=== PATIENT | female | born 2000 | race Caucasian/White ===

== ENCOUNTER 2023-09-22 08:07 | Inpatient (IN) | payer OTHER, SELFPAY ==
[2023-09-22] VITALS (144 sets, daily range): BP systolic 120–189; BP diastolic 67–106; PULSE 54–129; RESP 14–22; TEMP 36.4–36.9; O2SAT 83–100; BMI 31.0
[2023-09-22 08:04] LABS: ROM Internal Control Test YES-OK TO RESULT pt. (Internal QC)
[2023-09-22 08:06] LABS: ROM Patient Test POSITIVE (Negative)
[2023-09-22] MEDS: 0.9% Saline Lock 10 ML Syringe IV (08:30)
[2023-09-22] MEDS: NIFEdipine 10 MG Capsule PO (08:45)
[2023-09-22 08:46] LABS: Absolute Lymphocyte Count 2.06 X10^3/uL (0.83-4.51); Absolute Neutrophil Count 9.3 X10^3/uL (2.0-7.7); Basophil# 0.03 X10^3/uL; Basophil% 0.2 % (0-1); Eosinophil# 0.13 X10^3/uL; Hematocrit 42.1 % (37-47); Hemoglobin 14.3 g/dL (12.0-15.0); Lymphocyte # 2.06 X10^3/ul (0.83-4.51); Lymphocyte % 16.6 % (19-41); Mean Corpuscular Hgb 30.9 pg (27.0-32.0); Mean Corpuscular Volume 90.9 fL (81-99); Mean Platelet Vol. 12.3 fl (6.2-12.0); Monocyte% 6.5 % (0-10); NRBC Flagged by Analyzer 0 % (0-5); Neutrophil # 9.34 X10^3/uL (2.7-7.7); Neutrophil % 75.5 % (47-70); Platelet Count 177 K/mm3 (150-450); RBC Distribution Width CV 12.6 % (11.6-14.6); Red Blood Count 4.63 M/mm3 (4.2-5.4); White Blood Count 12.4 K/mm3 (4.4-11.0)
[2023-09-22 09:01] LABS: AST(SGOT) 23 U/L (15-37); Alanine Aminotransfer ALT/SGPT 17 U/L (13-56); Creatinine, Serum 0.71 mg/dL (0.55-1.02); EST Glomerular Filtration Rate 108 mL/min (>60); Est Glom Filt Rate - Afr Amer 130 mL/min (>60); Uric Acid 6.5 mg/dL (2.6-6.0)
[2023-09-22] MEDS: NIFEdipine 10 MG Capsule 20 MG PO (09:26)
[2023-09-22 09:46] LABS: Syphilis Antibodies Non-reactive
[2023-09-22 09:49] LABS: Protein, Urine (Random) 42.5 mg/dL (<11.9); Protein:Creat Ratio 1060 mg/g CRE (0-200)
[2023-09-22] MEDS: Lactated Ringers 1,000 ML 50 ML IV (10:00)
[2023-09-22] MEDS: Magnesium Sulfate 4gm/100mL 4 GM/100 ML IV.SOLN. IV (10:29)
[2023-09-22] MEDS: NIFEdipine 60 MG Tablet PO (10:30)
[2023-09-22] MEDS: Magnesium Sulfate 4gm/100mL 2 GM/50 ML IV.SOLN. IV (10:49)
[2023-09-22] MEDS: Magnesium Sulfate 20 GM/500 ML BAG IV ×2 (11:06→21:11)
[2023-09-22] MEDS: Lidocaine 1% (20 ml mdv) 20 ML Vial INFILT (15:20)
[2023-09-22] MEDS: Oxytocin 15 Units/NS 250ml 15 UNITS/250 ML IV.SOLN 83 UNITS IV (15:40)
--- NOTE | 2023-09-22 15:40 | EX.PCM.OBRPT ---
Maternal Data Information Final KELECHI: 09/17/23 Gestational age: 40 5/7 Vaginal Delivery Maternal Presentation Maternal Presentation: Active Labor Operative Information Date of Procedure: 09/22/23 Pre-Operative Diagnosis: labor, preeclampsia w/ severe features Post-Operative Diagnosis: same Surgery / Procedure Performed: Spontaneous Vaginal Delivery Type of Anesthesia: Local with 1% Lidocaine (18cc) Special Medications: none Drain: - (none) Estimated Blood Loss: 500 Time of Delivery: 15:11 Findings Description of Procedure: A vigorous male was delivered [CHRISTINE] over an intact perineum. There was a left-sided second-degree vaginal laceration that was approximately 2 cm long.. The remainder the infant was delivered with maternal pushing and gentle traction only in less than 15 seconds. The Pitocin infusion was initiated for active management of the third stage. The cord was clamped and cut after cord pulsations ceased. The infant was attended to by the waiting nursing staff. The placenta was delivered spontaneously and intact. The cervix and vagina were intact. Local anesthetic was injected locally. The vaginal laceration was pared with 3-0 Vicryl suture in a running standard fashion hemostasis was noted. Sponge and needle counts were correct. A vaginal sweep was completed by me. Presentation: CHRISTINE Amniotic Membrane Rupture Type: Spontaneous Amniotic Fluid Description: Clear Placental Delivery Description: Spontaneous Placenta Disposition: [facility] Cord Vessel Description: 3 Vessels Cord Entanglement: None A Gender: Male (1 minute): 8 (5 minute): 9 Delayed Cord Clamping: Yes Post Vaginal Delivery Medications Given After Delivery: IV Pitocin Episiotomy Description: None Laceration: 2nd degree (vaginal)
--- NOTE | 2023-09-22 15:43 | PCM.HP.OB ---
HPI - General General Date of Admission: 09/22/23 Date of Service: 09/22/23 Chief Complaint: 40 5/7 HPI Narrative LEYDA RAMIREZ, is a 23 F who presents G2, P0 in active labor. Her blood pressures were also in the severe range. Her was uncomplicated to date. Maternal Data Information Final KELECHI: 09/17/23 Gestational age: 40 5/7 PFSH PFSH Medical History (Updated 09/22/23 @ 15:[address] Quin Ramirez MD) Superficial varicosities Home Medications [id number] 1 pkg PO DAILY 09/22/23 [History Last Taken Unknown] Allergy/AdvReac Type Severity Reaction Status Date / Time amoxicillin [From Augmentin] Allergy Swelling Verified 09/22/23 08:37 clavulanic acid Allergy Swelling Verified 09/22/23 08:37 [From Augmentin] Surgical History (Updated 09/22/23 @ 09:18 by Yashira Miramontes) History of surgery Social History Smoking Status: Never smoker History Elective abortions Hx Para 0 Spontaneous abortions Hx # Term Pregnancies Ectopic pregnancies Hx # Pregnancies Multiple births # of living children ROS Constitutional Constitutional: Denies fatigue, fever(s) or malaise Eyes Eyes: Denies change in vision ENT HEENT: Denies dizziness or headache(s) Cardiovascular Cardiovascular: Denies chest pain, dyspnea or lightheadedness Respiratory/Chest Respiratory/Chest: Denies cough or dyspnea Gastrointestinal Gastrointestinal: Denies change in bowel habits Genitourinary Genitourinary: Denies burning urination or genital lesions Integumentary Integumentary: Denies rash Neurologic Neurologic: Denies confusion, dizziness, headache(s), numbness or weakness Vital Signs Vital Signs Vital Signs: 09/22/23 08:01 09/22/23 08:01 09/22/23 08:01 Temperature Temperature Source Tympanic Pulse Rate 66 Respiratory Rate Respiratory Effort Respiratory Depth Respiratory Pattern Blood Pressure 189/101 H Blood Pressure Mean BP Systolic 189 BP Diastolic 101 Blood Pressure Source Blood Pressure Position Blood Pressure Location Pulse Ox Oxygen Delivery Method 09/22/23 08:01 09/22/23 08:01 09/22/23 08:03 Temperature 97.6 F L Temperature Source Pulse Rate Respiratory Rate Respiratory Effort Respiratory Depth Respiratory Pattern Blood Pressure 162/85 H Blood Pressure Mean BP Systolic 162 BP Diastolic 85 Blood Pressure Source Blood Pressure Position Blood Pressure Location Pulse Ox 100 Oxygen Delivery Method 09/22/23 08:03 09/22/23 08:06 09/22/23 08:06 Temperature Temperature Source Pulse Rate 54 L 64 Respiratory Rate Respiratory Effort Respiratory Depth Respiratory Pattern Blood Pressure Blood Pressure Mean BP Systolic BP Diastolic Blood Pressure Source Blood Pressure Position Blood Pressure Location Pulse Ox 99 Oxygen Delivery Method 09/22/23 08:11 09/22/23 08:11 09/22/23 08:16 Temperature Temperature Source Pulse Rate 74 69 Respiratory Rate Respiratory Effort Respiratory Depth Respiratory Pattern Blood Pressure Blood Pressure Mean BP Systolic BP Diastolic Blood Pressure Source Blood Pressure Position Blood Pressure Location Pulse Ox 99 Oxygen Delivery Method 09/22/23 08:16 09/22/23 08:19 09/22/23 08:19 Temperature Temperature Source Pulse Rate 59 L Respiratory Rate Respiratory Effort Respiratory Depth Respiratory Pattern Blood Pressure 168/89 H Blood Pressure Mean BP Systolic 168 BP Diastolic 89 Blood Pressure Source Blood Pressure Position Blood Pressure Location Pulse Ox 98 Oxygen Delivery Method 09/22/23 08:21 09/22/23 08:21 09/22/23 08:26 Temperature Temperature Source Pulse Rate 67 75 Respiratory Rate Respiratory Effort Respiratory Depth Respiratory Pattern Blood Pressure Blood Pressure Mean BP Systolic BP Diastolic Blood Pressure Source Blood Pressure Position Blood Pressure Location Pulse Ox 99 Oxygen Delivery Method 09/22/23 08:26 09/22/23 08:31 09/22/23 08:31 Temperature Temperature Source Pulse Rate 68 Respiratory Rate Respiratory Effort Respiratory Depth Respiratory Pattern Blood Pressure Blood Pressure Mean BP Systolic BP Diastolic Blood Pressure Source Blood Pressure Position Blood Pressure Location Pulse Ox 100 100 Oxygen Delivery Method 09/22/23 08:33 09/22/23 08:33 09/22/23 08:36 Temperature Temperature Source Pulse Rate 69 69 Respiratory Rate Respiratory Effort Respiratory Depth Respiratory Pattern Blood Pressure 174/99 H Blood Pressure Mean BP Systolic 174 BP Diastolic 99 Blood Pressure Source Blood Pressure Position Blood Pressure Location Pulse Ox Oxygen Delivery Method 09/22/23 08:36 09/22/23 08:41 09/22/23 08:41 Temperature Temperature Source Pulse Rate 69 Respiratory Rate Respiratory Effort Respiratory Depth Respiratory Pattern Blood Pressure Blood Pressure Mean BP Systolic BP Diastolic Blood Pressure Source Blood Pressure Position Blood Pressure Location Pulse Ox 99 97 Oxygen Delivery Method 09/22/23 09:09 09/22/23 09:09 09/22/23 09:47 Temperature Temperature Source Pulse Rate 71 Respiratory Rate Respiratory Effort Respiratory Depth Respiratory Pattern Blood Pressure 161/96 H 147/88 H Blood Pressure Mean BP Systolic 161 147 BP Diastolic 96 88 Blood Pressure Source Blood Pressure Position Blood Pressure Location Pulse Ox Oxygen Delivery Method 09/22/23 09:47 09/22/23 10:34 09/22/23 10:34 Temperature Temperature Source Pulse Rate 72 94 Respiratory Rate Respiratory Effort Respiratory Depth Respiratory Pattern Blood Pressure Blood Pressure Mean BP Systolic BP Diastolic Blood Pressure Source Blood Pressure Position Blood Pressure Location Pulse Ox 98 Oxygen Delivery Method 09/22/23 10:36 09/22/23 10:36 09/22/23 10:39 Temperature Temperature Source Pulse Rate 94 100 Respiratory Rate Respiratory Effort Respiratory Depth Respiratory Pattern Blood Pressure Blood Pressure Mean BP Systolic BP Diastolic Blood Pressure Source Blood Pressure Position Blood Pressure Location Pulse Ox 94 Oxygen Delivery Method 09/22/23 10:39 09/22/23 10:42 09/22/23 10:42 Temperature Temperature Source Pulse Rate 102 H Respiratory Rate Respiratory Effort Respiratory Depth Respiratory Pattern Blood Pressure 138/86 H Blood Pressure Mean BP Systolic 138 BP Diastolic 86 Blood Pressure Source Blood Pressure Position Blood Pressure Location Pulse Ox 99 Oxygen Delivery Method 09/22/23 10:44 09/22/23 10:44 09/22/23 10:49 Temperature Temperature Source Pulse Rate 100 95 Respiratory Rate Respiratory Effort Respiratory Depth Respiratory Pattern Blood Pressure Blood Pressure Mean BP Systolic BP Diastolic Blood Pressure Source Blood Pressure Position Blood Pressure Location Pulse Ox 99 Oxygen Delivery Method 09/22/23 10:49 09/22/23 10:51 09/22/23 10:51 Temperature Temperature Source Pulse Rate 101 H Respiratory Rate Respiratory Effort Respiratory Depth Respiratory Pattern Blood Pressure Blood Pressure Mean BP Systolic BP Diastolic Blood Pressure Source Blood Pressure Position Blood Pressure Location Pulse Ox 98 92 Oxygen Delivery Method 09/22/23 10:53 09/22/23 10:53 09/22/23 10:54 Temperature Temperature Source Pulse Rate 82 96 Respiratory Rate Respiratory Effort Respiratory Depth Respiratory Pattern Blood Pressure 144/67 H Blood Pressure Mean BP Systolic 144 BP Diastolic 67 Blood Pressure Source Blood Pressure Position Blood Pressure Location Pulse Ox Oxygen Delivery Method 09/22/23 10:54 09/22/23 10:59 09/22/23 10:59 Temperature Temperature Source Pulse Rate 92 Respiratory Rate Respiratory Effort Respiratory Depth Respiratory Pattern Blood Pressure Blood Pressure Mean BP Systolic BP Diastolic Blood Pressure Source Blood Pressure Position Blood Pressure Location Pulse Ox 99 99 Oxygen Delivery Method 09/22/23 11:02 09/22/23 11:02 09/22/23 11:03 Temperature Temperature Source Pulse Rate 81 88 Respiratory Rate Respiratory Effort Respiratory Depth Respiratory Pattern Blood Pressure 148/85 H Blood Pressure Mean BP Systolic 148 BP Diastolic 85 Blood Pressure Source Blood Pressure Position Blood Pressure Location Pulse Ox Oxygen Delivery Method 09/22/23 11:03 09/22/23 11:04 09/22/23 11:04 Temperature Temperature Source Pulse Rate 95 Respiratory Rate Respiratory Effort Respiratory Depth Respiratory Pattern Blood Pressure Blood Pressure Mean BP Systolic BP Diastolic Blood Pressure Source Blood Pressure Position Blood Pressure Location Pulse Ox 93 99 Oxygen Delivery Method 09/22/23 11:10 09/22/23 11:10 09/22/23 11:12 Temperature Temperature Source Pulse Rate 81 Respiratory Rate Respiratory Effort Respiratory Depth Respiratory Pattern Blood Pressure 166/88 H Blood Pressure Mean BP Systolic 166 BP Diastolic 88 Blood Pressure Source Blood Pressure Position Blood Pressure Location Pulse Ox 94 Oxygen Delivery Method 09/22/23 11:12 09/22/23 11:15 09/22/23 11:15 Temperature Temperature Source Pulse Rate 84 80 Respiratory Rate Respiratory Effort Respiratory Depth Respiratory Pattern Blood Pressure Blood Pressure Mean BP Systolic BP Diastolic Blood Pressure Source Blood Pressure Position Blood Pressure Location Pulse Ox 91 Oxygen Delivery Method 09/22/23 11:20 09/22/23 11:20 09/22/23 11:22 Temperature Temperature Source Pulse Rate 70 Respiratory Rate Respiratory Effort Respiratory Depth Respiratory Pattern Blood Pressure 143/85 H Blood Pressure Mean BP Systolic 143 BP Diastolic 85 Blood Pressure Source Blood Pressure Position Blood Pressure Location Pulse Ox 92 Oxygen Delivery Method 09/22/23 11:22 09/22/23 11:24 09/22/23 11:24 Temperature Temperature Source Pulse Rate 70 87 Respiratory Rate Respiratory Effort Respiratory Depth Respiratory Pattern Blood Pressure Blood Pressure Mean BP Systolic BP Diastolic Blood Pressure Source Blood Pressure Position Blood Pressure Location Pulse Ox 99 Oxygen Delivery Method 09/22/23 11:28 09/22/23 11:28 09/22/23 11:29 Temperature Temperature Source Pulse Rate 69 64 Respiratory Rate Respiratory Effort Respiratory Depth Respiratory Pattern Blood Pressure Blood Pressure Mean BP Systolic BP Diastolic Blood Pressure Source Blood Pressure Position Blood Pressure Location Pulse Ox 92 Oxygen Delivery Method 09/22/23 11:29 09/22/23 10:40 09/22/23 11:32 Temperature Temperature Source Temporal Pulse Rate Respiratory Rate Respiratory Effort Respiratory Depth Respiratory Pattern Blood Pressure 135/106 H Blood Pressure Mean BP Systolic 135 BP Diastolic 106 Blood Pressure Source Blood Pressure Position Blood Pressure Location Pulse Ox 94 Oxygen Delivery Method 09/22/23 11:32 09/22/23 11:34 09/22/23 11:34 Temperature Temperature Source Pulse Rate 86 71 Respiratory Rate Respiratory Effort Respiratory Depth Respiratory Pattern Blood Pressure Blood Pressure Mean BP Systolic BP Diastolic Blood Pressure Source Blood Pressure Position Blood Pressure Location Pulse Ox 90 Oxygen Delivery Method 09/22/23 11:39 09/22/23 11:39 09/22/23 11:45 Temperature Temperature Source Pulse Rate 85 66 Respiratory Rate Respiratory Effort Respiratory Depth Respiratory Pattern Blood Pressure Blood Pressure Mean BP Systolic BP Diastolic Blood Pressure Source Blood Pressure Position Blood Pressure Location Pulse Ox 98 Oxygen Delivery Method 09/22/23 11:45 09/22/23 11:49 09/22/23 11:49 Temperature Temperature Source Pulse Rate 80 Respiratory Rate Respiratory Effort Respiratory Depth Respiratory Pattern Blood Pressure Blood Pressure Mean BP Systolic BP Diastolic Blood Pressure Source Blood Pressure Position Blood Pressure Location Pulse Ox 93 99 Oxygen Delivery Method 09/22/23 11:55 09/22/23 11:55 09/22/23 11:56 Temperature Temperature Source Pulse Rate 89 93 Respiratory Rate Respiratory Effort Respiratory Depth Respiratory Pattern Blood Pressure Blood Pressure Mean BP Systolic BP Diastolic Blood Pressure Source Blood Pressure Position Blood Pressure Location Pulse Ox 100 Oxygen Delivery Method 09/22/23 11:56 09/22/23 12:00 09/22/23 12:00 Temperature Temperature Source Pulse Rate 87 Respiratory Rate Respiratory Effort Respiratory Depth Respiratory Pattern Blood Pressure Blood Pressure Mean BP Systolic BP Diastolic Blood Pressure Source Blood Pressure Position Blood Pressure Location Pulse Ox 83 95 Oxygen Delivery Method 09/22/23 12:05 09/22/23 12:05 09/22/23 12:08 Temperature Temperature Source Pulse Rate 91 Respiratory Rate Respiratory Effort Respiratory Depth Respiratory Pattern Blood Pressure 138/88 H Blood Pressure Mean BP Systolic 138 BP Diastolic 88 Blood Pressure Source Blood Pressure Position Blood Pressure Location Pulse Ox 100 Oxygen Delivery Method 09/22/23 12:08 09/22/23 12:08 09/22/23 12:10 Temperature Temperature Source Pulse Rate 74 95 Respiratory Rate Respiratory Effort Respiratory Depth Respiratory Pattern Blood Pressure Blood Pressure Mean BP Systolic BP Diastolic Blood Pressure Source Blood Pressure Position Blood Pressure Location Pulse Ox 89 Oxygen Delivery Method 09/22/23 12:10 09/22/23 12:22 09/22/23 12:22 Temperature Temperature Source Pulse Rate 79 Respiratory Rate Respiratory Effort Respiratory Depth Respiratory Pattern Blood Pressure Blood Pressure Mean BP Systolic BP Diastolic Blood Pressure Source Blood Pressure Position Blood Pressure Location Pulse Ox 99 98 Oxygen Delivery Method 09/22/23 12:24 09/22/23 12:24 09/22/23 12:27 Temperature Temperature Source Pulse Rate 91 95 Respiratory Rate Respiratory Effort Respiratory Depth Respiratory Pattern Blood Pressure 158/99 H Blood Pressure Mean BP Systolic 158 BP Diastolic 99 Blood Pressure Source Blood Pressure Position Blood Pressure Location Pulse Ox Oxygen Delivery Method 09/22/23 12:27 09/22/23 12:32 09/22/23 12:32 Temperature Temperature Source Pulse Rate 87 Respiratory Rate Respiratory Effort Respiratory Depth Respiratory Pattern Blood Pressure Blood Pressure Mean BP Systolic BP Diastolic Blood Pressure Source Blood Pressure Position Blood Pressure Location Pulse Ox 96 98 Oxygen Delivery Method 09/22/23 12:37 09/22/23 12:37 09/22/23 12:39 Temperature Temperature Source Pulse Rate 105 H Respiratory Rate Respiratory Effort Respiratory Depth Respiratory Pattern Blood Pressure 144/81 H Blood Pressure Mean BP Systolic 144 BP Diastolic 81 Blood Pressure Source Blood Pressure Position Blood Pressure Location Pulse Ox 99 Oxygen Delivery Method 09/22/23 12:39 09/22/23 12:42 09/22/23 12:42 Temperature Temperature Source Pulse Rate 77 101 H Respiratory Rate Respiratory Effort Respiratory Depth Respiratory Pattern Blood Pressure Blood Pressure Mean BP Systolic BP Diastolic Blood Pressure Source Blood Pressure Position Blood Pressure Location Pulse Ox 98 Oxygen Delivery Method 09/22/23 12:47 09/22/23 12:47 09/22/23 12:53 Temperature Temperature Source Pulse Rate 89 Respiratory Rate Respiratory Effort Respiratory Depth Respiratory Pattern Blood Pressure 149/89 H Blood Pressure Mean BP Systolic 149 BP Diastolic 89 Blood Pressure Source Blood Pressure Position Blood Pressure Location Pulse Ox 96 Oxygen Delivery Method 09/22/23 12:53 09/22/23 12:52 09/22/23 12:57 Temperature Temperature Source Pulse Rate 81 88 Respiratory Rate Respiratory Effort Respiratory Depth Respiratory Pattern Blood Pressure Blood Pressure Mean BP Systolic BP Diastolic Blood Pressure Source Blood Pressure Position Blood Pressure Location Pulse Ox 98 Oxygen Delivery Method 09/22/23 12:57 09/22/23 13:02 09/22/23 13:02 Temperature Temperature Source Pulse Rate 96 Respiratory Rate Respiratory Effort Respiratory Depth Respiratory Pattern Blood Pressure Blood Pressure Mean BP Systolic BP Diastolic Blood Pressure Source Blood Pressure Position Blood Pressure Location Pulse Ox 99 97 Oxygen Delivery Method 09/22/23 13:07 09/22/23 13:07 09/22/23 13:16 Temperature Temperature Source Pulse Rate 87 126 H Respiratory Rate Respiratory Effort Respiratory Depth Respiratory Pattern Blood Pressure Blood Pressure Mean BP Systolic BP Diastolic Blood Pressure Source Blood Pressure Position Blood Pressure Location Pulse Ox 98 Oxygen Delivery Method 09/22/23 13:16 09/22/23 13:21 09/22/23 13:21 Temperature Temperature Source Pulse Rate 78 Respiratory Rate Respiratory Effort Respiratory Depth Respiratory Pattern Blood Pressure Blood Pressure Mean BP Systolic BP Diastolic Blood Pressure Source Blood Pressure Position Blood Pressure Location Pulse Ox 97 96 Oxygen Delivery Method 09/22/23 13:25 09/22/23 13:25 09/22/23 13:26 Temperature Temperature Source Pulse Rate 91 92 Respiratory Rate Respiratory Effort Respiratory Depth Respiratory Pattern Blood Pressure 141/85 H Blood Pressure Mean BP Systolic 141 BP Diastolic 85 Blood Pressure Source Blood Pressure Position Blood Pressure Location Pulse Ox Oxygen Delivery Method 09/22/23 13:26 09/22/23 13:31 09/22/23 13:31 Temperature Temperature Source Pulse Rate 85 Respiratory Rate Respiratory Effort Respiratory Depth Respiratory Pattern Blood Pressure Blood Pressure Mean BP Systolic BP Diastolic Blood Pressure Source Blood Pressure Position Blood Pressure Location Pulse Ox 98 95 Oxygen Delivery Method 09/22/23 13:36 09/22/23 13:36 09/22/23 13:41 Temperature Temperature Source Pulse Rate 89 83 Respiratory Rate Respiratory Effort Respiratory Depth Respiratory Pattern Blood Pressure Blood Pressure Mean BP Systolic BP Diastolic Blood Pressure Source Blood Pressure Position Blood Pressure Location Pulse Ox 99 Oxygen Delivery Method 09/22/23 13:41 09/22/23 13:46 09/22/23 13:46 Temperature Temperature Source Pulse Rate 85 Respiratory Rate Respiratory Effort Respiratory Depth Respiratory Pattern Blood Pressure Blood Pressure Mean BP Systolic BP Diastolic Blood Pressure Source Blood Pressure Position Blood Pressure Location Pulse Ox 97 99 Oxygen Delivery Method 09/22/23 13:51 09/22/23 13:51 09/22/23 13:57 Temperature Temperature Source Pulse Rate 98 Respiratory Rate Respiratory Effort Respiratory Depth Respiratory Pattern Blood Pressure 149/77 H Blood Pressure Mean BP Systolic 149 BP Diastolic 77 Blood Pressure Source Blood Pressure Position Blood Pressure Location Pulse Ox 100 Oxygen Delivery Method 09/22/23 13:57 09/22/23 13:56 09/22/23 13:35 Temperature Temperature Source Temporal Pulse Rate 86 Respiratory Rate Respiratory Effort Respiratory Depth Respiratory Pattern Blood Pressure Blood Pressure Mean BP Systolic BP Diastolic Blood Pressure Source Blood Pressure Position Blood Pressure Location Pulse Ox 99 Oxygen Delivery Method 09/22/23 13:35 09/22/23 15:01 09/22/23 15:01 Temperature 98.0 F Temperature Source Pulse Rate 129 H Respiratory Rate Respiratory Effort Respiratory Depth Respiratory Pattern Blood Pressure 144/72 H Blood Pressure Mean BP Systolic 144 BP Diastolic 72 Blood Pressure Source Blood Pressure Position Blood Pressure Location Pulse Ox Oxygen Delivery Method 09/22/23 15:40 09/22/23 15:40 09/22/23 15:40 Temperature Temperature Source Pulse Rate 121 H Respiratory Rate Respiratory Effort Respiratory Depth Respiratory Pattern Blood Pressure 153/79 H Blood Pressure Mean BP Systolic 153 BP Diastolic 79 Blood Pressure Source Blood Pressure Position Blood Pressure Location Pulse Ox 99 Oxygen Delivery Method 09/22/23 10:40 09/22/23 11:25 09/22/23 12:30 Temperature 98.3 F Temperature Source Temporal Pulse Rate 100 98 100 Respiratory Rate 16 18 18 Respiratory Effort Normal Normal Normal Respiratory Depth Normal Normal Normal Respiratory Pattern Normal Normal Normal Blood Pressure 138/86 H 143/85 H 158/99 H Blood Pressure Mean 103 104 118 BP Systolic BP Diastolic Blood Pressure Source Monitor Monitor Monitor Blood Pressure Position Sitting Right Lateral Sitting Blood Pressure Location Right Arm Left Arm Left Arm Pulse Ox 99 99 99 Oxygen Delivery Method Room Air Room Air Room Air 09/22/23 10:53 09/22/23 11:02 09/22/23 13:30 Temperature Temperature Source Pulse Rate 96 95 101 H Respiratory Rate 16 16 16 Respiratory Effort Normal Respiratory Depth Normal Respiratory Pattern Normal Blood Pressure 144/67 H 148/85 H 141/85 H Blood Pressure Mean 92 106 103 BP Systolic BP Diastolic Blood Pressure Source Monitor Monitor Monitor Blood Pressure Position Standing Semi-Fowlers Sitting Blood Pressure Location Right Arm Right Arm Left Arm Pulse Ox 99 99 99 Oxygen Delivery Method Room Air Room Air Room Air Weight Weight: 82.1 kg Body Mass Index (BMI) 31.0 Physical Exam Const alert and no apparent distress General Appearance: cooperative HEENT normocephalic Resp normal respiratory effort Cardio regular rate GI soft to palpation GI Narrative: gravid, nontender, appropriate for gestational age Extremity no calf tenderness General Extremity: edema Skin no wounds Rashes: No rashes noted Psych activity/motor behavior normal Labs Labs Labs: Blood Type O POSITIVE Antibody Screen NEGATIVE Hct 42.1 % (37-47) Hgb 14.3 g/dL (12.0-15.0) Syphilis Total Ab Non-reactive Assessment & Plan (1) Spontaneous onset of labor: (2) Pre-eclampsia, severe, antepartum: PLAN: 40 weeks gestation, preeclampsia with severe features. Hypertensive protocol initiated. Blood pressures are stabilized and patient was started on magnesium sulfate prophylaxis. Estimated weight was less than 4500 g clinically and pelvis clinically adequate to expect vaginal delivery. May have routine pain control measures as needed and as indicated.
[2023-09-22] MEDS: Acetaminophen 500 MG Tablet 1000 MG PO (20:04)
[2023-09-22] MEDS: miSOPROStol 200 MCG Tablet 800 MCG RC (20:22)
--- NOTE | 2023-09-22 20:40 | NURSING ---
Dr. Ramirez performed straight catheterization at this time
[2023-09-22] MEDS: Lactated Ringers 1,000 ML 999 ML IV (20:42)
[2023-09-22] MEDS: Carboprost Tromethamine 250 MCG/ML Ampul IM (20:52)
--- NOTE | 2023-09-22 20:55 | PCM.PN.OB ---
Subjective Subjective Patient lightheaded when attempted to get up. Otherwise was feeling fine when nursing noted gush of blood w/ fundal check. Objective Data Objective Data Vital Signs: Vital Signs Temp Pulse Resp BP Pulse Ox O2 Del Method 98.1 F 115 H 18 128/75 H 93 Room Air 09/22/23 20:06 09/22/23 20:21 09/22/23 20:06 09/22/23 20:06 09/22/23 20:21 09/22/23 20:06 Oxygen Delivery Method Room Air Weight: 82.1 kg Body Mass Index (BMI) 31.0 Intake & Output: Intake and Output for Last 24 Hours 09/20/23 09/21/23 09/22/23 23:59 23:59 23:59 Intake Total 829.17 / 829.17 Output Total 500 / 500 Balance 329.17 / 329.17 Lab / Micro Data 09/22/23 08:30 09/22/23 08:30 Labs: Laboratory Results - last 24 hr 09/22/23 07:50: Vag Amniotic Fld Detect POSITIVE H 09/22/23 08:30: WBC 12.4 H, RBC 4.63, Hgb 14.3, Hct 42.1, MCV 90.9, MCH 30.9, MCHC 34.0, RDW Std Deviation 41.0, RDW Coeff of Ariane 12.6, Plt Count 177, MPV 12.3 H, Immature Gran % (Auto) 0.200, Neut % (Auto) 75.5 H, Lymph % (Auto) 16.6 L, [place] % (Auto) 6.5, Eos % (Auto) 1.0, Baso % (Auto) 0.2, Absolute Neuts (auto) 9.3 H, Absolute Lymphs (auto) 2.06, Nucleated RBC % 0, Creatinine 0.71, Est GFR (MDRD) Af Amer 130, Est GFR (MDRD) Non-Af 108, Uric Acid 6.5 H, AST 23, ALT 17, Syphilis Total Ab Non-reactive 09/22/23 08:57: U Random Total Protein 42.5 H, Urine Creatinine 40.10, Protein/Creatinin Ratio 1060 H, Blood Type O POSITIVE, Antibody Screen NEGATIVE Physical Exam Narrative Awake, altert, NAD abd- fundus boggy, expressed for approx 300 cc of clots, brief US confirmed clots and debris 3 cm. US guided reamoval w/ banjo currette. Cervix and vagina and laceration intact. No other source of bleeding. Assessment & Plan (1) atony of uterus with hemorrhage: PLAN: Evacuation of clot w/ fundal massage and manual and ultrasound guided banjo curette. Given Hemabate and cytotec. Second IV line and 1000 cc of LR ordered. Coags and CBC bladder straight catheterized recheck CBC in am monitor fundal closely give ancef IVx1 due to uterine exploration TOTAL EBL now since delivery 1100 cc c/w atony with hemorrhage
[2023-09-22 21:09] LABS: Absolute Lymphocyte Count 1.66 X10^3/uL (0.83-4.51); Absolute Neutrophil Count 18.4 X10^3/uL (2.0-7.7); Basophil# 0.02 X10^3/uL; Basophil% 0.1 % (0-1); Eosinophil# 0.01 X10^3/uL; Hematocrit 33.4 % (37-47); Hemoglobin 11.3 g/dL (12.0-15.0); Lymphocyte # 1.66 X10^3/ul (0.83-4.51); Lymphocyte % 7.8 % (19-41); Mean Corp Hgb Conc 33.8 g/dL (32-36); Mean Corpuscular Volume 91.5 fL (81-99); Mean Platelet Vol. 11.7 fl (6.2-12.0); Monocyte# 1.14 X10^3/uL; Monocyte% 5.4 % (0-10); NRBC Flagged by Analyzer 0 % (0-5); Neutrophil # 18.37 X10^3/uL (2.7-7.7); Neutrophil % 86.2 % (47-70); Platelet Count 192 K/mm3 (150-450); RBC Distribution Width CV 12.4 % (11.6-14.6); RBC Distribution Width SD 41.1 fl (35.1-43.9); Red Blood Count 3.65 M/mm3 (4.2-5.4); White Blood Count 21.3 K/mm3 (4.4-11.0)
[2023-09-22] MEDS: Ketorolac 30 MG/ML Syringe IV (21:12)
[2023-09-22] MEDS: Loperamide 2 MG Capsule 4 MG PO (21:20)
[2023-09-22] MEDS: Cefazolin 2 GM in 0.9% Normal Saline (100mL Bag) 100 ML IV (21:22)
--- NOTE | 2023-09-22 21:25 | NURSING ---
EBL per Dr. Ramirez
[2023-09-22 22:06] LABS: Fibrinogen 402 mg/dl (203-444)
[2023-09-22 22:07] LABS: International Normalized Ratio 0.9; Prothrombin Time (Protime)PT. 12.5 SECONDS (11.7-14.9)
[2023-09-22 22:09] LABS: Partial Thromboplast Time 26.8 Seconds (24.1-36.2)
[2023-09-23] VITALS (22 sets, daily range): BP systolic 107–132; BP diastolic 53–76; PULSE 70–107; RESP 16–21; TEMP 36.3–37.2; O2SAT 96–99
[2023-09-23] MEDS: Acetaminophen 500 MG Tablet 1000 MG PO ×3 (02:20→18:01)
[2023-09-23 05:41] LABS: Absolute Lymphocyte Count 2.03 X10^3/uL (0.83-4.51); Absolute Neutrophil Count 10.3 X10^3/uL (2.0-7.7); Basophil# 0.03 X10^3/uL; Basophil% 0.2 % (0-1); Eosinophil# 0.06 X10^3/uL; Eosinophils% 0.5 % (0-5); Hematocrit 28.1 % (37-47); Hemoglobin 9.5 g/dL (12.0-15.0); Lymphocyte # 2.03 X10^3/ul (0.83-4.51); Lymphocyte % 15.3 % (19-41); Mean Corp Hgb Conc 33.8 g/dL (32-36); Mean Corpuscular Hgb 30.7 pg (27.0-32.0); Mean Corpuscular Volume 90.9 fL (81-99); Mean Platelet Vol. 11.7 fl (6.2-12.0); Monocyte# 0.76 X10^3/uL; Monocyte% 5.7 % (0-10); NRBC Flagged by Analyzer 0 % (0-5); Neutrophil # 10.29 X10^3/uL (2.7-7.7); Neutrophil % 77.8 % (47-70); Platelet Count 157 K/mm3 (150-450); RBC Distribution Width CV 12.6 % (11.6-14.6); RBC Distribution Width SD 41.2 fl (35.1-43.9); Red Blood Count 3.09 M/mm3 (4.2-5.4); White Blood Count 13.2 K/mm3 (4.4-11.0)
[2023-09-23] MEDS: DiphenhydrAMINE 25 MG Capsule PO (06:22)
[2023-09-23] MEDS: Magnesium Sulfate 20 GM/500 ML BAG IV (07:13)
--- NOTE | 2023-09-23 08:15 | PCM.PROGNOTE ---
Subjective Subjective patient seen at bedside, doing well. Patient reports good pain control. lochia mild- no further clots or heavy bleeding. mild headache this morning while on Magnesium. Mild dizziness when ambulating. Objective Data Objective Data Vital Signs: Vital Signs Temp Pulse Resp BP Pulse Ox O2 Del Method 98.1 F 81 16 132/76 H 99 Room Air 09/23/23 08:08 09/23/23 08:08 09/23/23 08:08 09/23/23 08:08 09/23/23 08:08 09/23/23 08:08 Oxygen Delivery Method Room Air Weight: 82.1 kg Body Mass Index (BMI) 31.0 Intake & Output: Intake and Output for Last 24 Hours 09/21/23 09/22/23 09/23/23 23:59 23:59 23:59 Intake Total 2489.17 / 2489.17 790 / 790 Output Total 1500 / 1500 600 / 600 Balance 989.17 / 989.17 190 / 190 Lab / Micro Data 09/23/23 05:30 09/22/23 08:30 Labs: Laboratory Results - last 24 hr 09/22/23 08:30: WBC 12.4 H, RBC 4.63, Hgb 14.3, Hct 42.1, MCV 90.9, MCH 30.9, MCHC 34.0, RDW Std Deviation 41.0, RDW Coeff of Ariane 12.6, Plt Count 177, MPV 12.3 H, Immature Gran % (Auto) 0.200, Neut % (Auto) 75.5 H, Lymph % (Auto) 16.6 L, [place] % (Auto) 6.5, Eos % (Auto) 1.0, Baso % (Auto) 0.2, Absolute Neuts (auto) 9.3 H, Absolute Lymphs (auto) 2.06, Nucleated RBC % 0, Creatinine 0.71, Est GFR (MDRD) Af Amer 130, Est GFR (MDRD) Non-Af 108, Uric Acid 6.5 H, AST 23, ALT 17, Syphilis Total Ab Non-reactive 09/22/23 08:57: U Random Total Protein 42.5 H, Urine Creatinine 40.10, Protein/Creatinin Ratio 1060 H, Blood Type O POSITIVE, Antibody Screen NEGATIVE 09/22/23 21:00: WBC 21.3 H, RBC 3.65 L, Hgb 11.3 L, Hct 33.4 L, MCV 91.5, MCH 31.0, MCHC 33.8, RDW Std Deviation 41.1, RDW Coeff of Ariane 12.4, Plt Count 192, MPV 11.7, Immature Gran % (Auto) 0.500, Neut % (Auto) 86.2 H, Lymph % (Auto) 7.8 L, [place] % (Auto) 5.4, Eos % (Auto) 0.0, Baso % (Auto) 0.1, Absolute Neuts (auto) 18.4 H, Absolute Lymphs (auto) 1.66, Nucleated RBC % 0, PT 12.5, INR 0.9, APTT 26.8, Fibrinogen 402 09/23/23 05:30: WBC 13.2 H, RBC 3.09 L, Hgb 9.5 L, Hct 28.1 L, MCV 90.9, MCH 30.7, MCHC 33.8, RDW Std Deviation 41.2, RDW Coeff of Ariane 12.6, Plt Count 157, MPV 11.7, Immature Gran % (Auto) 0.500, Neut % (Auto) 77.8 H, Lymph % (Auto) 15.3 L, [place] % (Auto) 5.7, Eos % (Auto) 0.5, Baso % (Auto) 0.2, Absolute Neuts (auto) 10.3 H, Absolute Lymphs (auto) 2.03, Nucleated RBC % 0 Physical Exam Const alert and oriented x3 General Appearance: cooperative HEENT normocephalic Neck General: normal visual inspection GI soft to palpation and non-distended GI Narrative: Fundus firm Extremity normal to inspection and no calf tenderness Skin no rashes or lesions noted Neuro oriented x3 and CN's II-XII intact bilaterally Psych mental status grossly normal Assessment & Plan Assessment/Plan (1) atony of uterus with hemorrhage: (2) Pre-eclampsia, severe, antepartum: (3) Acute blood loss anemia: PLAN: Plan PPD#1 Magnesium dc at 10 am today pain mgmt ambulation continue procardia xl 60mg montior vs start ferrous sulfate
[2023-09-23] MEDS: Hydrocortisone 2.5% Crm 1 APPLIC TOPICAL (09:24)
[2023-09-23] MEDS: NIFEdipine 60 MG Tablet PO (10:24)
[2023-09-23] MEDS: Ibuprofen 600 MG Tablet PO (10:24)
[2023-09-23] MEDS: 0.9% Saline Lock 10 ML Syringe IV ×2 (10:48→10:53)
[2023-09-23] MEDS: Ferrous Sulfate 325 MG Tablet PO (15:23)
[2023-09-23] MEDS: Senna/Docusate Sodium 1 Tablet PO (21:27)
[2023-09-24 01:34] VITALS: BP 136/63; PULSE 84; O2SAT 98
[2023-09-24] MEDS: Acetaminophen 500 MG Tablet 1000 MG PO (01:38)
[2023-09-24 01:45] VITALS: BP 136/63; PULSE 83; RESP 17; TEMP 36.1; O2SAT 98
[2023-09-24 07:46] VITALS: BP 114/65; PULSE 63
[2023-09-24 08:00] VITALS: BP 114/65; PULSE 63; RESP 15; TEMP 36.6
[2023-09-24] MEDS: Ibuprofen 600 MG Tablet PO (08:13)
--- NOTE | 2023-09-24 08:30 | NURSING ---
0800 pt c/o headache mostly frontal above left eye- pt agreeable to taking motrin, pt rates headache pain a 4/10; pt has red and tender nipples- pt trying to latch infant on the rt side and not opening mouth very wide to insert nipple- pt agreeable to having come in and help, pt rates nipple pain a 6/10
--- NOTE | 2023-09-24 08:44 | PN.OBGYN_ITS ---
Subjective Subjective Pain well-controlled. Average lochia. Complained of some headache last night and this morning. No visual changes. Denies epigastric pain. Denies lightheadedness or dizziness when she gets up to ambulate. Positive bowel movement after delivery, normal urination. Objective Data Objective Data Vital Signs: Vital Signs Temp Pulse Resp BP Pulse Ox O2 Del Method 97.9 F 63 15 114/65 98 Room Air 09/24/23 08:00 09/24/23 08:00 09/24/23 08:00 09/24/23 08:00 09/24/23 01:45 09/24/23 01:45 Oxygen Delivery Method Room Air Weight: 82.1 kg Body Mass Index (BMI) 31.0 Intake & Output: Intake and Output for Last 24 Hours 09/22/23 09/23/23 09/24/23 23:59 23:59 23:59 Intake Total 2489.17 / 2489.17 1110.83 / 1110.83 Output Total 1500 / 1500 1300 / 1300 Balance 989.17 / 989.17 -189.17 / -189.17 Lab / Micro Data 09/23/23 05:30 09/22/23 08:30 Physical Exam Narrative 2+ DTRs, no clonus. Cranial nerves II through XII grossly intact. And s ymmetrical Const alert and no apparent distress Narrative: Fundus firm, below umbilicus. Assessment & Plan (1) Acute blood loss anemia: PLAN: Acute blood loss anemia from hemorrhage due to atony. Patient is tolerating this well. Will discharge home on oral iron and vitamins. (2) (spontaneous vaginal delivery): PLAN: day #2 from spontaneous vaginal delivery. Delivery complicated by severe preeclampsia. Has a headache today, this may be from Procardia. Blood pressures are actually in the low normal range. Decrease Procardia to 30 mg. Reassess later today. May be able to go home later today on oral antihypertensives with close surveillance with home monitoring.
--- NOTE | 2023-09-24 09:32 | NURSING ---
3330 dr comer aware of pts c/o headache and morning bp of 114/65- plan of care is to change procardia from 60 mg to 30 instead and monitor headache for the day.
--- NOTE | 2023-09-24 09:36 | NURSING ---
pt sleeping not awakened - earlier pt stated that sleeping often helps her headaches when she gets them.
[2023-09-24] MEDS: NIFEdipine 30 MG Tablet PO (10:37)
--- NOTE | 2023-09-24 12:24 | NURSING ---
1040 pt states that after her nap that her headache is gone
[2023-09-24 12:48] VITALS: BP 133/62; PULSE 67
[2023-09-24] MEDS: Ferrous Sulfate 325 MG Tablet PO (12:50)
[2023-09-24 13:09] VITALS: BP 133/62; PULSE 67; RESP 15; TEMP 36.6
--- NOTE | 2023-09-24 14:49 | DCINST_ITS ---
Discharge Instructions Diet Discharge Diet: No restrictions Activity Discharge Activity: May Drive and May Shower May resume sexual activity in: 6 weeks Ice area for (Minutes): 15 Weight Bearing Status: Weight bearing as tolerated Lifting Restrictions: nothing heavier than baby Additional Activity Instructions:: Monitor your blood pressure at home. If your blood pressure is 160/110 or higher call the office or after hours line. If you have a severe headache that does not resolve with over the counter medication, visual changes, upper abdominal pain with nausea and vomiting, check your blood pressure and call. Dressing / Incision Call your doctor if your incision/area has: Continuous Slow Oozing, Sudden Increased Bleeding, Increased Pain/ Swelling, Increased Redness, Foul Smelling Discharge and Swelling at the incision site Call your doctor if you observe: Fever of 101 or Higher, Coldness, Increased Pain, Numbness or Tingling, Change in Color, Inability to urinate, Inability to have a bowel movement, Using more than 1 pad per hour, Shortness of breath, Dizziness, Fainting spells, Swelling in the ankles, Chest pain, Prolonged hiccupping, Increased palpitations (irregular heartbeat), Calf discomfort and Uncontrolled pain Cleanse incision/area with: Soap & Water Follow Up Care Please Follow Up With: Quin Ramirez MD When: 1 week for blood pressure check 6 week exam Test Results: Test results from this visit will be discussed in further detail at your follow- up appointment, if applicable. Discharge Plan Admission Admit Date/Time: 09/22/23 08:07 Primary Reason for Your Visit: delivery Attending Provider: Quin Ramirez Primary Care Provider: [place] Physician,Tracy Primary Instructions Patient Instructions: After a Vaginal Discharge Orders/Prescriptions Prescriptions: New nifedipine [Procardia XL] 30 mg tablet extended release 24hr 30 mg PO DAILY Qty: 30 1RF ferrous sulfate 325 mg (65 mg iron) tablet 325 mg PO QODAY Qty: 30 0RF Continued [id number] fum-[id number] [One A Day Women's DHA] 1 pkg PO DAILY Referrals / Follow Up: Care Physician,No Primary [Primary Care Provider] - Disposition Disposition (needs filled in before D/C Order can be placed): Home, Self Care
--- NOTE | 2023-09-24 15:25 | NURSING ---
1431 dr monk into see pt and go over discharge instructions - ok for dc home
== END 2023-09-24 16:35 | disposition home or self-care (01) | DRG 806 ==
LOC: WPOUT 08:09 → WP 08:09
PROVIDERS: Admitting Provider Obstetrics & Gynecology; Referring Provider Obstetrics & Gynecology; Visit Provider Obstetrics & Gynecology
DX: O14.14 Severe pre-eclampsia complicating childbirth (principal); Z37.0 Single live birth; D62 Acute posthemorrhagic anemia; O72.1 Other immediate postpartum hemorrhage; O70.1 Second degree perineal laceration during delivery; O90.81 Anemia of the puerperium; Z3A.40 40 weeks gestation of pregnancy
CPT/HCPCS: 59025; 59050; 82565; 82570; 84112; 84156; 84450; 84460; 84550; 85025; 85384; 85610; 85730; 86780; 86850; 86900; 86901; 99221; J7120; A4216; G0378